=== PATIENT | male | born 1960 | race Caucasian/White ===

== ENCOUNTER 2025-06-05 10:32 | Inpatient (IN) ==
--- NOTE | 2025-06-04 08:31 | Anesthesiology Consultation ---
Date of Service June 04, 2025 Assessment & Plan (1) Encounter for pre-operative examination: Chart Review Chart Review: Acceptable Risk for Surgery (pending DOS EKG ) and Patient NOT seen in Pre Admission Testing - Check EKG stat DOS (not done preoperatively) -Infectious Disease screening: Per PAT nursing assessment on 06/04/25. No known infectious disease contacts in past 10 days or current infectious disease symptoms. No recent travel outside the country. Right Knee Open Incisional Debridement 06/07/22= Done under [place] with LMA #5. Atraumatic attempt x 1 Consults Requested none ASA ASA2 Proposed Anesthesia Anesthesia Type: General Risk / Benefits Reviewed With: PT / POA / Parent / Guardian, Accepts Plan and Informed Consent Obtained History Surgery Operation Date: 06/05/25 11:50 Proposed Procedures p Right Knee Incisional Debridement Suture Material, Intraligamentous Ganglion Cyst - Claude Fritz MD s Right Knee Debridement Patella Tunnel - Claude Fritz MD Height/Weight Height: 6 ft Weight: 90.718 kg Allergies Allergy/AdvReac Type Severity Reaction Status Date / Time cephalexin Allergy rash, Verified 06/05/25 10:51 itching Medications Home Medications Medication Instructions Recorded Confirmed Last Taken amlodipine 5 mg tablet 5 mg PO QPM 06/07/22 06/05/25 06/04/25 22:00 losartan 25 mg tablet 25 mg PO QPM 06/07/22 06/05/25 06/04/25 22:00 Active Medications Generic Name Dose Route Start Last Admin Trade Name Freq PRN Reason Stop Dose Admin Acetaminophen 1,000 mg 06/05/25 06:00 06/05/25 10:54 Acetaminophen 500 Mg Tab PO 06/05/25 18:00 1,000 mg PREOP YU Administration Celecoxib 200 mg 06/05/25 06:00 06/05/25 10:54 Celebrex 200 Mg Cap PO 06/05/25 18:00 200 mg PREOP YU Administration Dexamethasone Sodium Phosphate 10 mg 06/05/25 06:00 06/05/25 10:54 DexamethasonePf 10 Mg/Ml Vial IV 06/05/25 18:00 10 mg PREOP YU Administration Famotidine 20 mg 06/05/25 06:00 06/05/25 10:54 Famotidine 20 Mg Tab PO 06/05/25 18:00 20 mg PREOP YU Administration Gabapentin 600 mg 06/05/25 06:00 06/05/25 10:54 Gabapentin 600 Mg Dose PO 06/05/25 18:00 600 mg PREOP YU Administration Lactated Ringer's 1,000 mls @ 60 mls/hr 06/05/25 06:00 06/05/25 10:55 Lr IV 06/05/25 22:39 Not Given .[id number] YU Lactated Ringer's 1,000 mls @ 15 mls/hr 06/05/25 06:00 06/05/25 11:15 Lr IV 06/06/25 05:59 15 mls/hr .Q24H YU Administration Metoclopramide HCl 10 mg 06/05/25 06:00 06/05/25 10:54 Metoclopramide Hcl 10 Mg Tablet PO 06/05/25 18:00 10 mg PREOP YU Administration Past Medical History Medical History Hyperlipidemia Hypertension Incomplete right bundle branch block (RBBB) pt stated "he knows nothing about this" noted incidentally on 2021 EKG per [place] records Exercise / Class Metabolic Activity II 4-5 Yardwork/Stairs/Walk up hill Past Family History Family History Other No known health problems Past Surgical History Surgical History History of repair of ruptured quadriceps tendon ~2021, right Hx of knee surgery 2021, rt knee open incision suture material, suture debridement, with I&D prepatellar bursa Status post cardiac surgery as a child, repair "hole in heart" (Discussed history of "hole in heart" repair during childhood with Dr Castaneda- patient is otherwise healthy- no physical limitations and tolerated surgery well in 2022- no further follow up/work up needed) Past Anesthesia History No Hx of Anesthesia Complications and No Family Hx of Anesthesia Complications History of PONV No Hx of PONV and No Hx of Motion Sickness Social History Smoking Status: Never smoker Do You Dip or Chew Tobacco: No Hx Alcohol Use: Yes alcohol intake frequency: holidays/special occasions only Hx Substance Use: No substance use type: does not use Physical Exam Vital Signs Last Vital Signs Temp 36.5 C 06/05/25 10:49 Pulse 71 06/05/25 10:49 Resp 20 06/05/25 10:49 BP 160/81 H 06/05/25 10:49 Pulse Ox 96 06/05/25 10:49 O2 Del Method Room Air 06/05/25 10:49 ENMT Mouth: no dentition abnormality Thyromental Distance: > or= 3.5 Finger Breadths Mallampati Class: II Neck normal visual inspection Respiratory normal respiratory effort Auscultation: lungs clear to auscultation bilaterally Cardiovascular Rate/Rhythm: regular rate and regular rhythm Psychiatric Orientation: alert Lab Results Anesthesia Preop Results Results Anesthesia Widget: WBC 9.46 K/ul (4.8-10.8) 06/03/25 Hgb 13.8 g/dL (14.0-18.0) L 06/03/25 Hct 40.0 % (42.0-52.0) L 06/03/25 Plt 375 K/uL (130-400) 06/03/25 Na 138 mmol/L (136-145) 06/03/25 K 3.9 mmol/L (3.5-5.1) 06/03/25 Cl 103 mmol/L (98-107) 06/03/25 CO2 26 mmol/L (21-32) 06/03/25 BUN 24 mg/dl (6-23) H 06/03/25 Creat 0.84 mg/dl (0.6-1.4) 06/03/25 Glucose Level 136 mg/dl (70-99(Fasting)) H 06/03/25 PT 10.3 Seconds (9.0-12.0) 06/03/25 PTT 29 Seconds (21-31) 06/03/25 INR 1.0 (0.9-1.1) 06/03/25 Blood Type A Positive 06/03/25 Antibody Screen NEGATIVE 06/03/25 Testing Chest X-Ray Date: 06/03/25 Findings: + NAD
--- NOTE | 2025-06-04 17:29 | History & Physical Report ---
Date of Service June 04, 2025 Assessment & Plan (1) Abscess of knee, right: Plan: Right knee mass possible sinus tract possible abscess likely combination of foreign body adverse reaction to suture material and possible superinfection and possible continued infection extending into the patella cannot rule out osteomyelitis patella. Plan is to do open exploration and excision of the cystic mass and excise suture material and debridement and irrigate the bone and get deep cultures. Hold antibiotics. Consulted with infectious disease Dr. Bernice Palacios who recommended patient start on Zosyn IV antibiotics pending cultures. She is available for consultation via Zoom or phone contact in the postoperative period (2) History of repair of ruptured quadriceps tendon: History of Present Illness Chief Complaint: Tender mass developed quadriceps area above the joint Primary Care Provider: Kaitlin Riggs 64-year-old male who had a quadriceps tendon repair of a right knee ruptured quad tendon in 2021 and had complications postop with adverse reaction to FiberWire suture material which had to be removed at the inferior pole of the patella but cultures demonstrate he had Pseudomonas infection. Patient had IntraOp clindamycin and gentamicin and was treated afterward with ciprofloxacin and had recovery and eventually with physical therapy did satisfactorily with function which patient was satisfied with until 3 years later now developed soft tissue cystic mass/abscess superior aspect of his incision of his quad tendon repair site. Patient denies headaches, sweats, fevers, chills, double vision, blurred vision, cough, sore throat, chest pain, sob, wheezing, n/v/d/c, numbness, tingling, fatigue, urinary symptoms, mood disorders. ROS positive for snoring/sleep apnea, anemia, acid reflux. Allergies Allergy/AdvReac Type Severity Reaction Status Date / Time cephalexin Allergy rash, Verified 06/04/25 07:56 itching Home Medications Medication Instructions Recorded Confirmed Type amlodipine 5 mg tablet 5 mg PO QPM 06/07/22 06/04/25 History losartan 25 mg tablet 25 mg PO QPM 06/07/22 06/04/25 History Past Med/Surg History Problem List (Updated 06/04/25 @ 17:31 by Claude Fritz MD) History of repair of ruptured quadriceps tendon Abscess of knee, right Encounter for pre-operative examination Incomplete right bundle branch block Status post cardiac surgery as a child, repair "hole in heart" Postoperative wound infection Medical History Hyperlipidemia Hypertension Incomplete right bundle branch block (RBBB) pt stated "he knows nothing about this" noted incidentally on 2021 EKG per [place] Surgical History History of repair of ruptured quadriceps tendon ~2021, right Hx of knee surgery 2021, rt knee open incision suture material, suture debridement, with I&D prepatellar bursa Status post cardiac surgery as a child, repair "hole in heart" Family History Other No known health problems Social History Smoking Status: Never smoker Second Hand Exposure: No; Do You Dip or Chew Tobacco: No; Tobacco Cessation Education Requested by Patient: No Hx Alcohol Use: Yes Hx Substance Use: No Preferred Language: Wallisian Communication Ability: Effective Thoracic Medicine Physician Required: No Beliefs That Will Affect Care: None Current Living Situation: Spouse Other Information That Helps Us Care for You: No Feels Safe at Home: Yes Safety Concerns: Feels Safe At This Time Assistive Devices: Glasses Review of Systems All systems reviewed & are unremarkable except as noted in HPI & below Physical Exam Constitutional: WD/WN, vitals as above Respiratory: normal respiratory effort; no respiratory distress Cardiovascular: Rate/Rhythm: regular rate and regular rhythm Musculoskeletal: Skin at area of upper quadriceps repair incision has a reddened fluid-filled collection with indurated area around it that has drained and could be an abscess or cystic foreign body reaction. Indurated tissue about 4 cm around the central area of cystic fluctuance. Knee joint has no knee effusion. Patella has patella Baha and there is attenuation of the quadriceps tendon repair. Distal circulation sensorimotor exam intact. Skin: no rashes, warm and dry Neurologic: normal touch/pain/proprioception Psychiatric: A+Ox3, euthymic affect Results & Data Laboratory Results WBC 9, C-reactive protein 1.03, ESR 40. Diagnostic Findings Radiographs demonstrate some widening of the tunnels that were made for suture placement that originally were just small and the size of a drill bit now widened. MRI demonstrates cystic fluid filled mass that appears to have a sinus tract that extends to the medial trans patellar tunnel which still appears to have some suture material within it. The lateral tunnel has apparent suture material within it but no inflammation. This could be a sinus tract extending to the medial tunnel and cannot rule out patella osteomyelitis. Small knee effusion and degenerative changes of meniscus and some arthritis in the knee likely unrelated to current problem.
[~2025-06-05 10:32] MED LIST: General Order Problem(s) SCH
[2025-06-05] MEDS: CeleBREX 200 MG CAP PO SCH (10:54)
[2025-06-05] MEDS: dexAMETHasone**PF** 10 MG/ML VIAL IV SCH (10:54)
[2025-06-05] MEDS: GABAPENTIN 600 MG DOSE PO SCH (10:54)
[2025-06-05] MEDS: METOCLOPRAMIDE HCL 10 MG TABLET PO SCH (10:54)
[2025-06-05] MEDS: FAMOTIDINE 20 MG TAB PO SCH (10:54)
[2025-06-05] MEDS: ACETAMINOPHEN 500 MG TAB PO SCH (10:54)
[2025-06-05] MEDS: LR 60ML/HR IV SCH (10:55)
[2025-06-05] MEDS: LR 15ML/HR IV SCH (11:15)
[2025-06-05] MEDS ORDERED: ATROPINE SULFATE 0.1 MG/ML 10ML SYR IV PRN (12:12)
[2025-06-05] MEDS ORDERED: ONDANSETRON INJ 2 MG/ML 2 ML VIAL IV PRN ×2 (12:12→17:14)
[2025-06-05] MEDS ORDERED: PROMETHAZINE HCL 6.25 MG in SODIUM CHLORIDE 0.9% 50 ML IV PRN (12:12)
[2025-06-05] MEDS ORDERED: MIDAZOLAM HCL 1 MG/ML 2ML VIAL ONE (12:23)
--- NOTE | 2025-06-05 12:23 | History & Physical Bridge Note ---
Date of Service June 05, 2025 History & Physical Bridge Note I have examined the patient, reviewed the History & Physical and in the interval since the performance of the History & Physical I have noted the following changes of clinical significance: no changes noted
[2025-06-05] MEDS: TRANEXAMIC ACID 1,000 MG **IV Pre-op IV SCH (12:36)
[2025-06-05] MEDS ORDERED: GLYCOPYRROLATE 0.2 MG/ML VIAL ONE (13:11)
[2025-06-05] MEDS ORDERED: KETOROLAC 30 MG/ML VIAL ONE (14:28)
[2025-06-05] MEDS ORDERED: MoRPHine SULFATE 2 MG/ML CARP ONE (14:28)
[2025-06-05] MEDS ORDERED: ceFAZolin 330 MG/ML 1 GM VIAL ONE (14:28)
--- NOTE | 2025-06-05 15:26 | Operative Report ---
Post Operative Report Pre & Post Diagnosis Operation Date: 06/05/25 11:50 Pre-Op Diagnosis: Right Knee Abscess, Foreign Body Reaction Post-Op Diagnosis: Right Knee multiple suture abscesses , Foreign Body Reaction, bone tunnel dilation cannot rule out osteomyelitis. I identified the patient and participated in the time-out.: Yes Procedure Operation Date: 06/05/25 11:50 Actual Procedures p Right Knee Incision and drainage and excisional debridement Suture Material, multiple suture abscesses, quadriceps tendon tissue, debridement of skin and sinus tract.- Claude Fritz MD s Right Knee Debridement of bone patella Tunnel(Right) - Claude Fritz MD Surgeon Claude Fritz MD [employer] Installer None Estimated Blood Loss 5 Findings Consistent with Post-Op Diagnosis Specimens Multiple cultures and soft tissue and bone tunnel culture Drains 2 Hemovac Anesthesia Type General Regional Complications none Disposition Disposition: Recovery Room Indications 64-year-old male with what appears to be an abscess at the superior aspect of his incision that just started to drain 1 day preop. Patient had history of allergic reaction to suture material which was excised postop quad tendon repair 3 years ago. He responded to excision of the suture material below the patella level and placement on antibiotics for Pseudomonas infection. Patient's recurrence now is proximal Description of Procedure Patient was taken to the operating room and placed supine on the operating room table. He was placed under general anesthesia. A pneumatic tourniquet was placed by his right upper thigh. His right lower extremity was prepped and draped with ChloraPrep. Exam demonstrated there was abscess at the superior aspect of his incision above the level of the patella overlying the quadriceps tendon. This was 2-1/2 cm in diameter but he had induration 4 cm in diameter. The leg was elevated and the pneumatic tourniquet was raised to 325 mmHg. An elliptical incision was made excising the sinus tract and some of the abscess. There was suture material within the abscess. This was #5 FiberWire suture. There was purulent material consistent with adverse suture reaction with allergic foreign body reaction versus infection and foreign body reaction. Cultures were obtained deep. Specimen was sent with sinus tract. The incision was carried down the to the inferior pole of the patella longitudinally through his old scar. Subcutaneous flaps were tediously dissected with the scarred indurated subcutaneous tissue having to be reflected off the underlying fascia. There were multiple abscesses. The quadriceps tendon repair was intact but attenuated above the level of the patella. I had to make 4 separate longitudinal incisions through the quadriceps tendon to remove this sutures which were placed in a Krakw stitch. All sutures were removed. Along the medial patella where the tunnel showed possible infection and dilation this tunnel was identified after dissection down to the bone and we cultured that area. After all areas were cultured then we gave him Zosyn IV. This was based on previous Pseudomonas infection 3 years ago. All wounds were copiously irrigated with pulsatile lavage saline solution. The drill was taken through the medial tunnel and this was drilled out debriding the bone of the medial patella tunnel and further irrigation performed afterwards. A Versajet was used to debride all the incisional areas and all the abscess areas until completely clean and devoid of any necrotic tissue. Further irrigation with Irrisept was performed. Further irrigation with 3 more liters of pulsatile lavage saline solution was performed. 2 Hemovac drains were placed. These were placed subcutaneous. The split and the quadricep tendon were repaired with interrupted #1 PDS sutures. The subcutaneous tissues were closed interrupted 2-0 PDS sutures. Skin was closed with surgical brianda. Xeroform dressing was applied. Compressive sterile dressings were applied. Tourniquet was let down patient normal capillary fill back to extremity. Patient had an Yunier wrap placed from the foot to the thigh. Patient's leg was placed into a knee immobilizer. Patient Toller procedure well. I attest to the content of the Intraoperative Record and any orders documented therein. Any exceptions are noted below.
[2025-06-05] MEDS ORDERED: diphenhydrAMINE Capsule 25 MG CAP PO PRN (17:14)
[2025-06-05] MEDS ORDERED: ZOLPIDEM TARTRATE 5 MG TAB PO PRN (17:14)
[2025-06-05] MEDS ORDERED: MAGNESIUM HYDROXIDE SUSP 30 ML UDC PO PRN (17:14)
[2025-06-05] MEDS ORDERED: ALUMINUM/MAGNESIUM SUSP 30 ML UDC PO PRN (17:14)
[2025-06-05] MEDS ORDERED: METOCLOPRAMIDE HCL INJ 5 MG/ML 2 ML VIAL IV PRN (17:14)
--- NOTE | 2025-06-05 18:04 | Hospitalist Consultation ---
Date of Consultation June 05, 2025 Assessment & Plan (1) Hypertension: Plan Bhupinder Haas is a 64 Y O Male with PMH of Hypertension S/P Incision and Drainage for multiple suture abscess in right knee consulted for routine consultation for medical management. #HTN -Patient is on Amlodipine 5mg PO qPM and Losartan 25mg PO qPM at home. -BP has been in the range of 140-160/ 70-90 -Denies any current symptoms like headache, dizziness, blurry vision or chest pain currently -Continue home medication. #Anticoagulation -Patient has been started on Eliquis 2.5 mg BID Continue rest of care as per primary team Supervising Physician Co-Signing Physician Notes Patient seen and examined, chart reviewed, case discussed with Dr. Brooks and I agree with the assessment and plan as above except as otherwise noted Labs and images reviewed 64-year-old male who presents for knee incision and drainage, excision of suture material with multiple suture abscesses and concern for possible foreign body reaction s/p operative intervention 06/05/2025. We are consulted for postoperative management of medical comorbidities. He had a history of hypertension. Blood pressure slightly elevated but reasonable postoperative. Follow BMP, check renal function in the morning. He has been placed on Eliquis for DVT prophylaxis. Zosyn has been continued given prior cultures positive for Pseudomonas in 2021. Fortunately he has been afebrile, he has no leukocytosis, and has been nontoxic. Differential includes localized reaction, he reports he does have a history of significant reaction to foreign bodies including metal wire around surgery as a child. Will continue to follow his cultures. If his bone cultures are positive and indicative of osteo would need treatment for 6 weeks however it is unclear if this is truly infectious versus an adverse foreign body reaction. Trend CBC daily. Agree with above History of Present Illness Reason for Consultation: Medical maangement Attending Physician: Claude Fritz MD History of Present Illness 64-year-old male who had a quadriceps tendon repair of a right knee ruptured quad tendon in 2021 and had complications postop with adverse reaction to FiberWire suture material which had to be removed at the inferior pole of the patella but cultures demonstrate he had Pseudomonas infection. Patient had IntraOp clindamycin and gentamicin and was treated afterward with ciprofloxacin and had recovery and eventually with physical therapy did satisfactorily with function which patient was satisfied with until 3 years later now developed soft tissue cystic mass/abscess superior aspect of his incision of his quad tendon repair site. Patient denies headaches, sweats, fevers, chills, double vision, blurred vision, cough, sore throat, chest pain, sob, wheezing, n/v/d/c, numbness, tingling, fatigue, urinary symptoms, mood disorders. ROS positive for snoring/sleep apnea, anemia, acid reflux. Allergies Allergy/AdvReac Type Severity Reaction Status Date / Time cephalexin Allergy rash, Verified 06/05/25 10:51 itching Home Medications Medication Instructions Recorded Confirmed Type amlodipine 5 mg tablet 5 mg PO QPM 06/07/22 06/05/25 History losartan 25 mg tablet 25 mg PO QPM 06/07/22 06/05/25 History Patient History Medical History Hyperlipidemia Hypertension Incomplete right bundle branch block (RBBB) pt stated "he knows nothing about this" noted incidentally on 2021 EKG per [place] Surgical History History of repair of ruptured quadriceps tendon ~2021, right Hx of knee surgery 2021, rt knee open incision suture material, suture debridement, with I&D prepatellar bursa Status post cardiac surgery as a child, repair "hole in heart" Family History Other No known health problems Social History Smoking Status: Never smoker Second Hand Exposure: No; Do You Dip or Chew Tobacco: No; Tobacco Cessation Education Requested by Patient: No Hx Alcohol Use: Yes Hx Substance Use: No Preferred Language: Monegasque Communication Ability: Effective Principal Scientist Required: No Beliefs That Will Affect Care: None Current Living Situation: Spouse Other Information That Helps Us Care for You: No Feels Safe at Home: Yes Safety Concerns: Feels Safe At This Time Assistive Devices: Glasses Review of Systems Review of Systems: As per HPI Physical Exam Physical Exam: Constitutional: Well appearing, No acute distress, PILCCOD: Negative HEENT: Atraumatic, Normocephalic, No conjunctival injection CVS: S1 S2 no murmur, Regular Rhythm, no LE edema Respiratory: BL equal air entry with NVBS. No rhonchi, wheezes, or crackles. No increased work of breathing GI: Soft, Nondistended, Nontender, Normal Bowel sounds + MSK: No gross deformities noted Skin: Warm, Dry, No rashes Neuro: Alert, Oriented to TPP, No Focal deficit Psych: Mood and Affect congruent, Cooperative on exam Results & Data Results & Data Vital Signs (Past 12 Hours) Vital Signs Temp Pulse Pulse Resp BP Pulse Ox O2 Del Method 06/05/25 17:00 36.8 C 88 14 158/81 H 92 Room Air 06/05/25 16:40 88 16 148/85 H 96 Nasal Cannula 06/05/25 16:25 36.4 C L 86 16 153/80 H 97 Nasal Cannula 06/05/25 16:10 85 16 160/84 H 97 Nasal Cannula 06/05/25 16:00 83 16 148/82 H 97 Nasal Cannula 06/05/25 15:50 82 16 156/79 H 99 Room Air 06/05/25 15:40 74 16 151/76 H 97 Room Air 06/05/25 15:30 76 16 154/76 H 96 Room Air 06/05/25 15:20 36.5 C 73 16 157/74 H 96 Room Air 06/05/25 10:49 36.5 C 71 20 160/81 H 96 Room Air O2 Flow Rate 06/05/25 17:00 06/05/25 16:40 2 06/05/25 16:25 2 06/05/25 16:10 2 06/05/25 16:00 2 06/05/25 15:50 06/05/25 15:40 06/05/25 15:30 06/05/25 15:20 06/05/25 10:49 Resident Activity Tracking Resident Involvement: Resident Care Provided Care Provided: Adult Hospital Medicine
[2025-06-05] MEDS: PIPERACILLIN IV SCH (18:18)
[2025-06-05] MEDS: TAZOBACTAM IV SCH (18:18)
[2025-06-05] MEDS: PIPERACILLIN/TAZOBACTAM 4.5 GM/100 ML BAG IV ONE (18:33)
[2025-06-05] MEDS: KETOROLAC 30 MG/ML VIAL IV PRN (19:26)
[2025-06-05] MEDS: DOCUSATE SODIUM 100 MG CAP PO SCH (20:43)
[2025-06-05] MEDS: LOSARTAN POTASSIUM 25 MG TAB PO SCH (20:43)
[2025-06-05] MEDS ORDERED: APIXABAN 2.5 MG TAB PO SCH (21:00)
--- NOTE | 2025-06-05 21:53 | Electrocardiogram Report ---
Test Reason : Blood Pressure : */* mmHG Vent. Rate : 68 BPM Atrial Rate : 68 BPM P-R Int : 172 ms QRS Dur : 112 ms QT Int : 426 ms P-R-T Axes : 72 -6 66 degrees QTcB Int : 452 ms Normal sinus rhythm Incomplete right bundle branch block Borderline ECG When compared with ECG of 07-Jun-2022 15:18, No significant change was found Confirmed by Tico Gu ([id number]) on 06/05/2025 9:52:33 PM Referred By: Claude Fritz Confirmed By: Tico Gu
[2025-06-06] MEDS: PIPERACILLIN/TAZOBACTAM 4.5 GM/100 ML BAG IV SCH (00:34)
--- NOTE | 2025-06-06 07:42 | Hospitalist Consultation ---
Date of Consultation June 06, 2025 Assessment & Plan (1) Hypertension: Plan Bhupinder Haas is a 64yo M with PMH notable for HTN. Admitted for for multiple suture abscess in right knee, S/P incision and drainage on 06/05. Hospitalist service consulted for postoperative medical management. Recovering well overall #HTN -BP has been in the range of 140-160/70-90, reasonable post-op -Continue Amlodipine 5mg PO qPM and Losartan 25mg PO qPM -Denies any current symptoms like headache, dizziness, blurry vision or chest pain currently #Anticoagulation - Patient has been started on Eliquis 2.5 mg BID Continue rest of care as per primary team History of Present Illness Reason for Consultation: post-op medical management Attending Physician: Claude Fritz MD History of Present Illness Reports knee immobilizer is very uncomfortable, but per surg team needed for ambulation & can loosen in bed for comfort. Otherwise doing well, no f/c, CP, SOB, n/v/d, weakness, leg pain except appropriate discomfort around R knee. Allergies Allergy/AdvReac Type Severity Reaction Status Date / Time cephalexin Allergy rash, Verified 06/05/25 10:51 itching Home Medications Medication Instructions Recorded Confirmed Type amlodipine 5 mg tablet 5 mg PO QPM 06/07/22 06/05/25 History losartan 25 mg tablet 25 mg PO QPM 06/07/22 06/05/25 History Patient History Medical History Hyperlipidemia Hypertension Incomplete right bundle branch block (RBBB) pt stated "he knows nothing about this" noted incidentally on 2021 EKG per [place] records Surgical History History of repair of ruptured quadriceps tendon ~2021, right Hx of knee surgery 2021, rt knee open incision suture material, suture debridement, with I&D prepatellar bursa Status post cardiac surgery as a child, repair "hole in heart" Family History Other No known health problems Social History Smoking Status: Never smoker Second Hand Exposure: No; Do You Dip or Chew Tobacco: No; Tobacco Cessation Education Requested by Patient: No Hx Alcohol Use: Yes Hx Substance Use: No Preferred Language: Surinamese Communication Ability: Effective Grey Washer Required: No Beliefs That Will Affect Care: None Current Living Situation: Spouse Other Information That Helps Us Care for You: No Feels Safe at Home: Yes Safety Concerns: Feels Safe At This Time Assistive Devices: Walker Review of Systems Review of Systems: As per HPI Physical Exam Physical Exam: Gen: NAD, WD/WN CV: RRR, no m/r/g, S1/S2 normal, no LE edema, distal pulses intact Resp: CTAB, symmetrical chest rise, breathing non-labored Abd: Soft, NT/ND, +BS MSK: RLE largely covered by immobilizer. Normal str and ROM at ankle. Normal str, ROM, and visual inspection of LLE Skin: Warm, dry, well-perfused, no rashes appreciated Neuro: AOx3, CN II-XII grossly intact, no focal deficits Psych: Full, euthymic affect. Speech pace normal. Thoughts linear and goal- directed. Results & Data Results & Data Vital Signs (Past 12 Hours) Vital Signs Temp Pulse Pulse Resp BP Pulse Ox O2 Del Method 06/06/25 07:08 36.8 C 74 16 158/74 H 93 Room Air 06/06/25 05:24 36.9 C 73 16 152/72 H 94 Room Air 06/06/25 00:45 36.7 C 80 16 130/66 94 Room Air 06/05/25 20:42 78 18 138/69 94 Room Air Resident Activity Tracking Resident Involvement: Resident Care Provided Care Provided: Adult Hospital Medicine
[2025-06-06] MEDS: APIXABAN 2.5 MG TAB PO SCH (07:52)
--- NOTE | 2025-06-06 07:57 | Orthopedic Progress Note ---
Date of Service June 06, 2025 Assessment & Plan (1) Postoperative wound infection: Plan: POD #1 s/p Right Knee Incision and drainage and excisional debridement Suture Material, multiple suture abscesses, quadriceps tendon tissue, debridement of skin and sinus tract, Debridement of bone patella Tunnel knee immobilizer for ambulation, can loosen in bed for comfort hemovac drain until minimal drainage, possibly d/c tomorrow am DVT with Radhames ID Consulted, awaiting intra op cultures, currently on IV Zosyn, prior cultures positive for Pseudomonas in 2021. anticipate 6 weeks of Abx but will await ID recommendations. Admission and Anticipated Discharge Date Admission Date: June 05, 2025 Subjective POD #1 s/p Right Knee Incision and drainage and excisional debridement Suture Material, multiple suture abscesses, quadriceps tendon tissue, debridement of skin and sinus tract, Debridement of bone patella Tunnel Review of Systems Constitutional: no fever and no chills Respiratory: no cough and no dyspnea Cardiovascular: no chest pain, no dyspnea and no orthopnea Gastrointestinal: no abdominal pain, no nausea and no vomiting Physical Exam Physical Exam: Vital Signs Temp 36.8 C 06/06/25 07:08 Pulse 74 06/06/25 07:08 Resp 16 06/06/25 07:08 BP 158/74 H 06/06/25 07:08 Pulse Ox 93 06/06/25 07:08 O2 Del Method Room Air 06/06/25 07:08 O2 Flow Rate 2 06/05/25 16:40 Intake & Output 06/05/25 06/06/25 06/06/25 18:59 06:59 18:59 Intake Total 1700 / 1900 200 / 1900 Output Total 5 / 5 Balance 1695 / 1895 200 / 1895 Weight 89.9 kg Intake: IV 200 / 400 200 / 400 Lactated Ringe r's 1,000 ml @ 15 0 / 0 mls/hr IV .Q24 H YU Rx#: [id number] Piperacillin/T azobactam 4.5 gm 200 / 200 In 100 ml @ 25 mls/hr IV Q8H YU Rx#:[id number] Tranexamic Aci d / 0.7% NaCl 1, 200 / 200 000 mg In 100 ml @ 600 mls/hr IV TODAY@0600 YU Rx#:[id number] IV Perioperative 1500 / 1500 Output: Estimated Blood Loss 5 / 5 Drain Output 0 / 0 Right Knee Hem ovac 0 / 0 Other: Other Intake Aye rce sips # Unmeasured Voi ds 1 Weight Measureme nt Method Standing Scale Musculoskeletal: Right Knee: resting in immobilizer, dressing clean and dry. hemovac in place. NVDI, calf SNT, DP +2 Results & Data Vital Signs (Past 12 Hours) Vital Signs Temp Pulse Pulse Resp BP Pulse Ox O2 Del Method 06/06/25 07:08 36.8 C 74 16 158/74 H 93 Room Air 06/06/25 05:24 36.9 C 73 16 152/72 H 94 Room Air 06/06/25 00:45 36.7 C 80 16 130/66 94 Room Air 06/05/25 20:42 78 18 138/69 94 Room Air Laboratory Results Microbiology 06/05/25 14:04 Gram Stain - Final Knee,Right Aerobic and Anaerobic Culture - Pending 06/05/25 14:00 Gram Stain - Final Bone Aerobic and Anaerobic Culture - Pending 06/05/25 13:31 Gram Stain - Final Knee Aerobic and Anaerobic Culture - Pending 06/05/25 13:16 Gram Stain - Final Knee Aerobic and Anaerobic Culture - Pending 06/05/25 13:15 Gram Stain - Final Leg,Right Aerobic and Anaerobic Culture - Pending 06/05/25 13:14 Gram Stain - Final Knee,Right Aerobic and Anaerobic Culture - Pending
[2025-06-06 08:13] LABS: Hematocrit (blood only) 35.7 % (42.0-52.0); Hemoglobin 12.3 g/dL (14.0-18.0); Immature Granulocytes # (auto) 0.10 K/uL (0.01-0.20); Immature Granulocytes % (auto) 0.6 %; Mean Corpuscular Hemoglobin 28.6 pg (25.0-34.0); Mean Corpuscular Volume 83.0 fL (80.0-100.0); Platelet Count 310 K/uL (130-400); RDW Standard Deviation 40.3 fL (36.4-46.3); Red Blood Count 4.30 M/uL (4.70-6.10); White Blood Count 16.91 K/ul (4.8-10.8)
--- NOTE | 2025-06-06 15:08 | Hospitalist Progress Note ---
Date of Service June 06, 2025 Assessment & Plan (1) Hypertension: Plan Bhupinder Haas is a 64yo M with PMH notable for HTN. Admitted for for R knee abscess, S/P incision and drainage on 06/05. Hospitalist service consulted for postoperative medical management. Recovering well overall. #HTN -BP has been in the range of 130s-150s/70s, reasonable post-op -Continue Amlodipine 5mg PO qPM and Losartan 25mg PO qPM -Denies any current symptoms like headache, dizziness, blurry vision or chest pain currently #Anticoagulation - Continue Eliquis 2.5 mg BID #R knee abscess - POD#1 s/p Right knee I&D, excisional debridement of suture material, multiple suture abscesses, quadriceps tendon tissue, debridement of skin and sinus tract, and debridement of bone patella Tunnel (Right) - Continue rest of care as per primary team Admission and Anticipated Discharge Date Admission Date: June 05, 2025 Supervising Physician Co-Signing Physician Notes Patient seen and examined, chart reviewed, case discussed with Dr. Dominguez and I agree with the assessment and plan as above except as otherwise noted Labs and images reviewed At bedside. Nontoxic, no distress no fevers or chills. Really not labored. Drain is in place draining a scant amount of serosanguineous material. Had not yet heard about his cultures, discussed positive bone/knee cultures were consistent with suspected infection and confirms that he will need several weeks of antibiotics. Further decisions to be guided by speciation's once available.Leukocytosis of 16. Surgical cultures including bone culture are positive for Pseudomonas. He will require at least 6 weeks of treatment with antibiotics continue Zosyn for now. ID consultation is pending. Prior Pseudomonas cultures were sensitive to fluoroquinolones, his QT is not prolonged. Hemodynamically stable this morning. Nontoxic-appearing. Blood pressure adequately controlled, continue current treatment. Pain control adequate. DVT prophylaxis with Eliquis continued. No acute concerns at bedside. Subjective Reports knee immobilizer is very uncomfortable, but per surg team needed for ambulation & can loosen in bed for comfort. Otherwise doing well, no f/c, CP, SOB, n/v/d, weakness, leg pain except appropriate discomfort around R knee. Review of Systems Review of Systems: As per HPI Physical Exam Physical Exam: Gen: NAD, WD/WN CV: RRR, no m/r/g, S1/S2 normal, no LE edema, distal pulses intact Resp: CTAB, symmetrical chest rise, breathing non-labored Abd: Soft, NT/ND, +BS MSK: RLE largely covered by immobilizer. Normal str and ROM at ankle. Normal str, ROM, and visual inspection of LLE Skin: Warm, dry, well-perfused, no rashes appreciated Neuro: AOx3, CN II-XII grossly intact, no focal deficits Psych: Full, euthymic affect. Speech pace normal. Thoughts linear and goal- directed. Results & Data Results & Data Vital Signs (Past 12 Hours) Vital Signs Temp Pulse Pulse Resp BP Pulse Ox O2 Del Method 06/06/25 11:59 36.7 C 81 16 137/73 93 Room Air 06/06/25 07:08 36.8 C 74 16 158/74 H 93 Room Air 06/06/25 05:24 36.9 C 73 16 152/72 H 94 Room Air Resident Activity Tracking Resident Involvement: Resident Care Provided Care Provided: Adult Hospital Medicine
--- NOTE | 2025-06-07 06:46 | Hospitalist Progress Note ---
Date of Service June 07, 2025 Assessment & Plan (1) Hypertension: Plan Bhupinder Haas is a 64yo M with PMH notable for HTN. Admitted for for R knee abscess, S/P incision and drainage on 06/05. Hospitalist service consulted for postoperative medical management. Recovering well overall. #HTN -BP has been in the range of 130s-150s/70s, reasonable post-op -Continue Amlodipine 5mg PO qPM and Losartan 25mg PO qPM -Denies any current symptoms like headache, dizziness, blurry vision or chest pain currently #Anticoagulation - Continue Eliquis 2.5 mg BID #R knee abscess - POD#2 s/p Right knee I&D, excisional debridement of suture material, multiple suture abscesses, quadriceps tendon tissue, debridement of skin and sinus tract, and debridement of bone patella Tunnel (Right) - Cultures growing Pseudomonas, sensitive to all except meropenem. Will discuss with ID whether po Cipro would be safe given h/o tendon rupture, or IV abx required - Continue rest of care as per primary team Admission and Anticipated Discharge Date Admission Date: June 05, 2025 Supervising Physician Co-Signing Physician Notes Patient seen and examined, chart reviewed, case discussed with Dami Dominguez MD and I agree with the assessment and plan as above except as otherwise noted above. At the bedside. Doing well. Nontoxic. No fevers or chills. Leukocytosis is downtrending. Wound culture/bone culture positive for Pseudomonas. Cipro is not available option on sensitivities and received this 2-3 years ago; however not recommended given his history of tendon rupture and need for prolonged course. Did discuss with PA. There is a possibility for retained suture material, given this IV antibiotics are also reasonable. Discussed with ID. Agree with IV antibiotic treatment. Cultures are meropenem resistant. He is listed as having a cephalexin allergy, but notes that he had a single reaction which was some itching but no hives or respiratory involvement. He did receive cefazolin 06/05/2025 without reaction; reports he tolerated this without issue. Cefepime is significantly dissimilar structurally, he has also tolerated piperacillin, and low suspicion for true have allergy given his tolerance to cefazolin recently. Anticipate transition to cefepime for 6-week course of therapy. Will need weekly CBC/BMP. Will be seen by virtual ID 11/24 to review final recommendations Subjective Doing very well, no f/c, CP, SOB, n/v/d, weakness. Immobilizer has been loosened and is more comfortable. Pt has been oob w/o issues. No leg pain except appropriate discomfort around R knee. Review of Systems Review of Systems: As per HPI Physical Exam Physical Exam: Gen: NAD, WD/WN CV: RRR, no m/r/g, S1/S2 normal, no LE edema, distal pulses intact Resp: CTAB, symmetrical chest rise, breathing non-labored Abd: Soft, NT/ND, +BS MSK: RLE covered by immobilizer. Normal str and ROM at hip and ankle. Skin: Warm, dry, well-perfused, no rashes appreciated Neuro: AOx3, CN II-XII grossly intact, no focal deficits Psych: Full, euthymic affect. Speech pace normal. Thoughts linear and goal- directed. Results & Data Results & Data Vital Signs (Past 12 Hours) Vital Signs Temp Pulse Resp BP Pulse Ox O2 Del Method 06/06/25 20:08 36.6 C 72 17 165/82 H 94 Room Air Resident Activity Tracking Resident Involvement: Resident Care Provided Care Provided: Adult Hospital Medicine
[2025-06-07 07:20] LABS: Hematocrit (blood only) 39.1 % (42.0-52.0); Hemoglobin 12.9 g/dL (14.0-18.0); Mean Corpuscular Hemoglobin 28.0 pg (25.0-34.0); Mean Corpuscular Volume 84.8 fL (80.0-100.0); Platelet Count 330 K/uL (130-400); RDW Standard Deviation 42.2 fL (36.4-46.3); Red Blood Count 4.61 M/uL (4.70-6.10); White Blood Count 12.06 K/ul (4.8-10.8)
[2025-06-07 07:34] LABS: Anion Gap 7.0 (3-11); Blood Urea Nitrogen 19.0 mg/dl (6-23); Calcium 8.9 mg/dl (8.6-10.3); Carbon Dioxide 27.0 mmol/L (21-32); Chloride 105.0 mmol/L (98-107); Creatinine Clr Calc Pharmacy 83.0 ml/min; Glucose 120.0 mg/dl (70-99(Fasting)); Potassium 4.1 mmol/L (3.5-5.1); Sodium 139.0 mmol/L (136-145)
--- NOTE | 2025-06-07 07:37 | Orthopedic Progress Note ---
Date of Service June 07, 2025 Assessment & Plan (1) Postoperative wound infection: Plan: POD #2 s/p Right Knee Incision and drainage and excisional debridement Suture Material, multiple suture abscesses, quadriceps tendon tissue, debridement of skin and sinus tract, Debridement of bone patella Tunnel knee immobilizer for ambulation, can loosen in bed for comfort; PT: can do quad set, SLR, gentle heel slides, no ROM >90. d/c hemovac today, drain output 0. DVT with Eliquis ID Consulted, intraop cultures showing Pseudomonas aeruginosa. currently on IV Zosyn, prior cultures positive for Pseudomonas in 2021. anticipate 6 weeks of Abx but will await ID recommendations. Admission and Anticipated Discharge Date Admission Date: June 05, 2025 Subjective POD #2 s/p Right Knee Incision and drainage and excisional debridement Suture Material, multiple suture abscesses, quadriceps tendon tissue, debridement of skin and sinus tract, Debridement of bone patella Tunnel Review of Systems Constitutional: no fever and no chills Respiratory: no cough and no dyspnea Cardiovascular: no chest pain, no dyspnea and no orthopnea Gastrointestinal: no abdominal pain, no nausea and no vomiting Physical Exam Physical Exam: Vital Signs Temp 36.6 C 06/06/25 20:08 Pulse 72 06/06/25 20:08 Resp 17 06/06/25 20:08 BP 165/82 H 06/06/25 20:08 Pulse Ox 94 06/06/25 20:08 O2 Del Method Room Air 06/06/25 20:08 O2 Flow Rate 2 06/05/25 16:40 Intake & Output 06/06/25 06/07/25 06/07/25 18:59 06:59 18:59 Intake Total 200 / 300 100 / 300 Output Total 0 / 1 Balance 200 / 299 99 / 299 Intake: IV 200 / 300 100 / 300 Piperacillin/T azobactam 4.5 gm 200 / 300 100 / 300 In 100 ml @ 25 mls/hr IV Q8H YU Rx#:[id number] Output: Drain Output 0 / 0 Right Knee Hem ovac 0 / 0 # Bowel Movement s Other: # Unmeasured Voi ds 1 1 Musculoskeletal: Right Knee: resting in immobilizer, dressing clean and dry. hemovac in place. NVDI, calf SNT, DP +2 Results & Data Vital Signs (Past 12 Hours) Vital Signs Temp Pulse Resp BP Pulse Ox O2 Del Method 06/06/25 20:08 36.6 C 72 17 165/82 H 94 Room Air Laboratory Results Laboratory Results WBC 12.06 K/ul (4.8-10.8) H 06/07/25 06:49 RBC 4.61 M/uL (4.70-6.10) L 06/07/25 06:49 Hgb 12.9 g/dL (14.0-18.0) L 06/07/25 06:49 Hct 39.1 % (42.0-52.0) L 06/07/25 06:49 MCV 84.8 fL (80.0-100.0) 06/07/25 06:49 MCH 28.0 pg (25.0-34.0) 06/07/25 06:49 MCHC 33.0 g/dL (32.0-36.0) 06/07/25 06:49 RDW Std Deviation 42.2 fL (36.4-46.3) 06/07/25 06:49 RDW Coeff of Lizabeth 13.6 % (11.5-14.5) 06/07/25 06:49 Plt Count 330 K/uL (130-400) 06/07/25 06:49 MPV 9.6 fL (9.4-12.4) 06/07/25 06:49 Immature Gran % (Auto) 0.6 % 06/06/25 07:53 Neut % (Auto) 87.5 % 06/06/25 07:53 Lymph % (Auto) 6.7 % 06/06/25 07:53 Fountain % (Auto) 5.0 % 06/06/25 07:53 Eos % (Auto) 0.0 % 06/06/25 07:53 Baso % (Auto) 0.2 % 06/06/25 07:53 Neut # (Auto) 14.81 K/uL (1.40-6.50) H 06/06/25 07:53 Lymph # (Auto) 1.13 K/uL (1.20-3.40) L 06/06/25 07:53 Fountain # (Auto) 0.84 K/uL (0.11-0.59) H 06/06/25 07:53 Eos # (Auto) 0.00 K/uL (0.00-0.50) 06/06/25 07:53 Baso # (Auto) 0.03 K/uL (0.00-0.20) 06/06/25 07:53 Immature Gran # (Auto) 0.10 K/uL (0.01-0.20) 06/06/25 07:53 Sodium 139 mmol/L (136-145) 06/07/25 06:49 Potassium 4.1 mmol/L (3.5-5.1) 06/07/25 06:49 Chloride 105 mmol/L (98-107) 06/07/25 06:49 Carbon Dioxide 27 mmol/L (21-32) 06/07/25 06:49 Anion Gap 7 (3-11) 06/07/25 06:49 BUN 19 mg/dl (6-23) 06/07/25 06:49 Creatinine 1.00 mg/dl (0.6-1.4) 06/07/25 06:49 Est Cr Clr Drug Dosing 83.0 ml/min 06/07/25 06:49 eGFR 84.57 06/07/25 06:49 BUN/Creatinine Ratio 19.0 (10-20) 06/07/25 06:49 Glucose 120 mg/dl (70-99(Fasting)) H 06/07/25 06:49 Calcium 8.9 mg/dl (8.6-10.3) 06/07/25 06:49 Microbiology 06/05/25 13:31 Knee Gram Stain - Final 06/05/25 13:31 Knee Aerobic and Anaerobic Culture - Preliminary Pseudomonas aeruginosa 06/05/25 14:00 Bone Gram Stain - Final 06/05/25 14:00 Bone Aerobic and Anaerobic Culture - Preliminary Pseudomonas aeruginosa 06/05/25 13:16 Knee Gram Stain - Final 06/05/25 13:16 Knee Aerobic and Anaerobic Culture - Preliminary Pseudomonas aeruginosa 06/05/25 14:04 Knee,Right Gram Stain - Final 06/05/25 14:04 Knee,Right Aerobic and Anaerobic Culture - Preliminary No growth to date. 06/05/25 13:15 Leg,Right Gram Stain - Final 06/05/25 13:15 Leg,Right Aerobic and Anaerobic Culture - Preliminary No growth to date. 06/05/25 13:14 Knee,Right Gram Stain - Final 06/05/25 13:14 Knee,Right Aerobic and Anaerobic Culture - Preliminary No growth to date.
[2025-06-08 08:05] LABS: Hematocrit (blood only) 38.8 % (42.0-52.0); Hemoglobin 13.0 g/dL (14.0-18.0); Mean Corpuscular Hemoglobin 28.4 pg (25.0-34.0); Mean Corpuscular Volume 84.9 fL (80.0-100.0); Platelet Count 287 K/uL (130-400); RDW Standard Deviation 42.2 fL (36.4-46.3); Red Blood Count 4.57 M/uL (4.70-6.10); White Blood Count 9.25 K/ul (4.8-10.8)
[2025-06-08 08:26] LABS: Anion Gap 6.0 (3-11); Blood Urea Nitrogen 15.0 mg/dl (6-23); Calcium 8.8 mg/dl (8.6-10.3); Carbon Dioxide 29.0 mmol/L (21-32); Chloride 104.0 mmol/L (98-107); Creatinine Clr Calc Pharmacy 85.6 ml/min; Glucose 118.0 mg/dl (70-99(Fasting)); Potassium 3.9 mmol/L (3.5-5.1); Sodium 139.0 mmol/L (136-145)
--- NOTE | 2025-06-08 10:01 | Infectious Disease Consult ---
Date of Consultation June 08, 2025 Assessment & Plan (1) History of repair of ruptured quadriceps tendon: (2) Abscess of knee, right: Plan This is a 64-year-old man with a past medical history of hypertension, right quadricep tendon rupture status post repair in 05/2022, complicated by nonhealing wound with Pseudomonas aeruginosa infection and adverse reaction to FiberWire suture material and inflammation in prepatellar bursa. He underwent right knee open excision of suture material and excision of "proud flesh" with debridement of subcutaneous tissue, skin, prepatellar bursa with irrigation and debridement and wound closure on 06/07/2022. Operative culture grew Pseudomonas aeruginosa (pansensitive). He reports he was treated with ciprofloxacin. Postprocedure he did well with physical therapy. He eventually had closure of the wound and was able to walk and bike with no issues. He then developed increased swelling of the knee and abscess at the superior aspect of his incision of his quadricep tendon repair. He presents to the [facility] ED on 06/04/2025 for incision and drainage, excision of suture material with multiple suture abscesses. Prior to admission, outpatient ID (Dr. Palacios) was consulted by orthopedics and recommended the patient be started on Zosyn post OR. He did not received antibiotics prior to OR. Per my discussion with the patient, he confirms that in 05/2022, he had delay in right knee incision closure post tendon repair for several weeks. A wound swab of drainage grew Pseudomonas aeruginosa for which he was treated with ciprofloxacin. He went to the OR on 06/07/22 as per above, was treated with additional cipro and the wound eventually healed. He did well for for about 3 years About 2 months agom, he noticed intermittent knee swelling that resolved. 1 month ago knee swelling recurred and persisted. He then noted discoloration at the prior incision site and eventual dehiscence and wound drainage. Per report he underwent outpatient MRI (I do not have access to the result). On 06/05/2025, he underwent right knee incision and drainage and excisional debridement of suture material, multiple suture abscesses, quadricep tendon tissue, debridement of skin and sinus tract as well as right knee debridement of bone patella tunnel. All intraoperative cultures grew Pseudomonas aeruginosa (resistant to meropenem) On admission and throughout admission he has been afebrile and hemodynamically stable. WBC the day prior to admission on 06/03 was 9.46. Post OR on 06/06 WBC 16.91. Leukocytosis has resolved. He is currently on Zosyn. He denies fever, chills, sweats, nausea, vomiting, prior trauma to the knee. Pathology is pending. ID consulted for Right [place] knee infection. Microbiology: 06/05/2025 right knee suture abscess culture: Rare Pseudomonas aeruginosa(resistant to meropenem) 06/05/2025 right knee sinus tract culture #1: Rare Pseudomonas aeruginosa(resistant to meropenem) 06/05/2025 right knee sinus tract culture # 2: NGTD 06/05/2025 right quadricep tendon suture, vastus lateralis culture: Few Pseudomonas aeruginosa (resistant to meropenem) 06/05/2025 right knee bone tunnel culture: Rare Pseudomonas aeruginosa(resistant to meropenem) 06/05/2025 right patellar bone culture: Rare Pseudomonas aeruginosa(resistant to meropenem) Prior microbiology 06/07/2022 right knee abscess culture: Few Pseudomonas aeruginosa (pansensitive 05/26/2022 right knee abscess wound culture: Few Pseudomonas aeruginosa (pansensitive) Antibiotics Zosyn 06/05current # Recurrent Right knee Pseudomonas Aeruginosa infection. # Right knee suture abscesses, foreign body reaction, bone tunnel dilatat ion/sinus tract and osteomyelitis #Status post right knee I&D ,excisional debridement of suture material, multiple suture abscesses, quadricep tendon tissue, debridement of skin and sinus tract, and bone patella tunnel, 06/05/2025, cx Pseudomonas aeruginosa (resistant to meropenem) # History of repair of quadricep tendon repair 06/07/2022, cx Pseudomonas aeruginosa (pansensitive) Discussion: He presents with recurrent right [place] knee infection with abscess, sinus tract and osteomyelitis. He is sp OR. Bone cultures are positive for meropenem resistant pseudomonas aeruginosa. Positive bone culture confirms osteomyelitis. Pathology is pending. He has no knee hardware. He remains afebrile and hemodynamically stable. Would stay away from fluoroquinolones (Cipro, levofloxacin as the patient has a history of tendon rupture). Since organism is a Carbapenem R Pseudomonas, will place in contact isolation. Recommendations: -Discontinued Zosyn -Started Cefepime 2 g Iv q8h ( will avoid Cipro as given h/o tendon rupture) -Can Place picc line -Follow up pathology - since bone involved ( per cx ) plan for 6 weeks from OR. -Weekly CBC with diff, cmp on IV abx. Will need ID follow up on abx. Will d/w team if pt with follow with ID connect or Dr Palacios ( local ID) -Contact isolation for Carbapenem R Pseudomonas Discussed plan with patient. Thank you for this consult. ID will continue to follow. Sidney Fernandes MD, MPH Infectious Disease [facility], [facility] Call [phone] with questions Consultation Information Consultation was provided via telemedicine using two-way real-time interactive telecommunication between the patient and the telemedicine provider. For the duration of the visit, the provider was performing the assessment from a different facility than the patient. This includesuse of bluetooth stethoscope forauscultationperformed by the telepresenter that the telemedicine provider can hear if described in the physical exam. Threader Operator contact information: Please call [facility] Call Center [phone]. (Phone Number For Physician Use Only) After establishing a telemedicine visit, patient was: Patient was verified with two unique identifiers and Gave permission to continue telehealth session Time Spent with Patient: Initial => 75 min History of Present Illness Reason for Consultation: Recurrent R [place] Knee septic joint infection with Psuedomonas. Requesting Physician: Claude Fritz MD Attending Physician: Claude Fritz MD History of Present Illness This is a 64-year-old man with a past medical history of hypertension, right quadricep tendon rupture status post repair in 05/2022, complicated by nonhealing wound with Pseudomonas aeruginosa infection and adverse reaction to FiberWire suture material and inflammation in prepatellar bursa. He underwent right knee open excision of suture material and excision of "proud flesh" with debridement of subcutaneous tissue, skin, prepatellar bursa with irrigation and debridement and wound closure on 06/07/2022. Operative culture grew Pseudomonas aeruginosa (pansensitive). He reports he was treated with ciprofloxacin. Postprocedure he did well with physical therapy. He eventually had closure of the wound and was able to walk and bike with no issues. He then developed increased swelling of the knee and abscess at the superior aspect of his incision of his quadricep tendon repair. He presents to the [facility] ED on 06/04/2025 for incision and drainage, excision of suture material with multiple suture abscesses. Prior to admission, outpatient ID (Dr. Palacios) was consulted by orthopedics and recommended the patient be started on Zosyn post OR. He did not received antibiotics prior to OR. Per my discussion with the patient, he confirms that in 05/2022, he had delay in right knee incision closure post tendon repair for several weeks. A wound swab of drainage grew Pseudomonas aeruginosa for which he was treated with ciprofloxacin. He went to the OR on 06/07/22 as per above, was treated with additional cipro and the wound eventually healed. He did well for for about 3 years About 2 months agom, he noticed intermittent knee swelling that resolved . 1 month ago knee swelling recurred and persisted. He then noted discoloration at the prior incision site and eventual dehiscence and wound drainage. Per report he underwent outpatient MRI (I do not have access to the result). On 06/05/2025, he underwent right knee incision and drainage and excisional debridement of suture material, multiple suture abscesses, quadricep tendon tissue, debridement of skin and sinus tract as well as right knee debridement of bone patella tunnel. All intraoperative cultures grew Pseudomonas aeruginosa (resistant to meropenem) On admission and throughout admission he has been afebrile and hemodynamically stable. WBC the day prior to admission on 06/03 was 9.46. Post OR on 06/06 WBC 16.91. Leukocytosis has resolved. He is currently on Zosyn. He denies fever, chills, sweats, nausea, vomiting, prior trauma to the knee. Pathology is pending. ID consulted for Right [place] knee infection. Allergies Allergy/AdvReac Type Severity Reaction Status Date / Time cephalexin Allergy rash, Verified 06/05/25 10:51 itching Home Medications Medication Instructions Recorded Confirmed Type amlodipine 5 mg tablet 5 mg PO QPM 06/07/22 06/05/25 History losartan 25 mg tablet 25 mg PO QPM 06/07/22 06/05/25 History Patient History Medical History Hyperlipidemia Hypertension Incomplete right bundle branch block (RBBB) pt stated "he knows nothing about this" noted incidentally on 2021 EKG per [place] records Surgical History History of repair of ruptured quadriceps tendon ~2021, right Hx of knee surgery 2021, rt knee open incision suture material, suture debridement, with I&D prepatellar bursa Status post cardiac surgery as a child, repair "hole in heart" Family History Other No known health problems Social History Smoking Status: Never smoker Second Hand Exposure: No; Do You Dip or Chew Tobacco: No; Tobacco Cessation Education Requested by Patient: No Hx Alcohol Use: Yes Hx Substance Use: No Preferred Language: Yakut Communication Ability: Effective Sat Tutor Required: No Beliefs That Will Affect Care: None Current Living Situation: Spouse Other Information That Helps Us Care for You: No Feels Safe at Home: Yes Safety Concerns: Feels Safe At This Time Assistive Devices: Walker Review of System A 10 point ROS obtained. Pertinent positives as per HPI. Physical Exam Physical Exam: Gen- NAD HEENT- anicteric sclera, EOMI, hearing intact Neck- Supple Abd- soft, NT, ND Lung- Nonlabored breathing. On RA Extremities- Right knee in immobilizer. Right knee incision with brianda. No erythema. + post op edema. No drainage. Mild TTP Neuro- AAO times 3 Psych- cooperative, normal mood Results & Data Vital Signs (Past 12 Hours) Vital Signs Temp Pulse Resp BP Pulse Ox O2 Del Method 06/08/25 07:00 36.7 C 60 16 154/80 H 95 Room Air 06/07/25 22:10 36.6 C 60 16 145/73 H 95 Room Air Laboratory Results Laboratory Results - last 48 hr 06/07/25 06/08/25 06:49 07:42 WBC 12.06 H 9.25 RBC 4.61 L 4.57 L Hgb 12.9 L 13.0 L Hct 39.1 L 38.8 L MCV 84.8 84.9 MCH 28.0 28.4 MCHC 33.0 33.5 RDW Std Deviation 42.2 42.2 RDW Coeff of Lizabeth 13.6 13.6 Plt Count 330 287 MPV 9.6 9.5 Sodium 139 139 Potassium 4.1 3.9 Chloride 105 104 Carbon Dioxide 27 29 Anion Gap 7 6 BUN 19 15 Creatinine 1.00 0.97 Est Cr Clr Drug Dosing 83.0 85.6 eGFR 84.57 87.72 BUN/Creatinine Ratio 19.0 15.5 Glucose 120 H 118 H Calcium 8.9 8.8 Microbiology 06/05/25 14:04 Knee,Right Gram Stain - Final 06/05/25 14:04 Knee,Right Aerobic and Anaerobic Culture - Preliminary Pseudomonas aeruginosa 06/05/25 14:00 Bone Gram Stain - Final 06/05/25 14:00 Bone Aerobic and Anaerobic Culture - Preliminary Pseudomonas aeruginosa 06/05/25 13:31 Knee Gram Stain - Final 06/05/25 13:31 Knee Aerobic and Anaerobic Culture - Preliminary Pseudomonas aeruginosa 06/05/25 13:16 Knee Gram Stain - Final 06/05/25 13:16 Knee Aerobic and Anaerobic Culture - Preliminary Pseudomonas aeruginosa 06/05/25 13:15 Leg,Right Gram Stain - Final 06/05/25 13:15 Leg,Right Aerobic and Anaerobic Culture - Preliminary No growth to date. 06/05/25 13:14 Knee,Right Gram Stain - Final 06/05/25 13:14 Knee,Right Aerobic and Anaerobic Culture - Preliminary Pseudomonas aeruginosa Medications Administered Home Medications Medication Instructions Recorded Confirmed Last Taken amlodipine 5 mg tablet 5 mg PO QPM 06/07/22 06/05/25 06/04/25 22:00 losartan 25 mg tablet 25 mg PO QPM 06/07/22 06/05/25 06/04/25 22:00 Active Medications Generic Name Dose Route Start Last Admin Trade Name Freq PRN Reason Stop Dose Admin Amlodipine Besylate 5 mg 06/05/25 21:00 06/07/25 20:45 Amlodipine Besylate 5 Mg Tab PO 07/05/25 20:59 5 mg QPM YU Administration Apixaban 2.5 mg 06/06/25 09:00 06/08/25 07:08 Apixaban 2.5 Mg Tab PO 07/06/25 08:59 2.5 mg BID YU Administration Docusate Sodium 100 mg 06/05/25 21:00 06/08/25 07:12 Docusate Sodium 100 Mg Cap PO 07/05/25 20:59 Not Given BID YU Piperacillin Sod/Tazobactam Sod 4.5 gm in 100 mls @ 25 mls/hr 06/05/25 23:30 06/08/25 07:07 Zosyn IV 07/17/25 23:29 25 mls/hr Q8H YU Administration Protocol Ketorolac Tromethamine 30 mg 06/05/25 17:14 06/06/25 05:35 Ketorolac 30 Mg/Ml Vial IV 06/10/25 17:13 30 mg Q6H PRN Administration Pain Losartan Potassium 25 mg 06/05/25 21:00 06/07/25 20:44 Losartan Potassium 25 Mg Tab PO 07/05/25 20:59 25 mg QPM YU Administration
--- NOTE | 2025-06-08 11:15 | Orthopedic Progress Note ---
Date of Service June 08, 2025 Assessment & Plan (1) Postoperative wound infection: Plan: POD #3 s/p Right Knee Incision and drainage and excisional debridement Suture Material, multiple suture abscesses, quadriceps tendon tissue, debridement of skin and sinus tract, Debridement of bone patella Tunnel knee immobilizer for ambulation, can loosen in bed for comfort; PT: can do quad set, SLR, gentle heel slides, no ROM >90. DVT with Eliquis ID Consulted, intraop cultures showing Pseudomonas aeruginosa. Appreciate ID input. Zosyn was discontinued today. Start cefepime 2 g every 8 hours. Total time of IV cefepime will be at least 4 weeks. If pathology from the patella comes back with osteomyelitis, the IV timeframe will be 6 weeks. An order for a PICC line was placed today. Consent was obtained from the patient and the consent was placed in the chart. Discharge planningwe discussed that a discharge home will be able to happen after the PICC line is placed, after he has tolerated the cefepime, and the medications are set up to be sent to his home. He is aware that home nursing may be needed to start the IV medication. He also may be taught how to do the IVs on his own. Admission and Anticipated Discharge Date Admission Date: June 05, 2025 Subjective Patient states he is doing well postop day #3 from right knee I&D. He has been ambulating with the knee immobilizer. Pain is controlled in the knee. No new complaints today. Physical Exam Constitutional: WD/WN, vitals as above no acute distress (Lying in bed comfortably) Musculoskeletal: Knee: + surgical incision (Right knee dressing is C/D/I.); no skin erythema, no ecchymosis and no surgical drain present (Hemovac was removed yesterday) Skin: no rashes, warm and dry Trauma: no evidence of skin trauma Neurologic: normal touch/pain/proprioception Psychiatric: A+Ox3, euthymic affect Speech: normal rate/rhythm/volume of speech Results & Data Vital Signs (Past 12 Hours) Vital Signs Temp Pulse Resp BP Pulse Ox O2 Del Method 06/08/25 07:00 36.7 C 60 16 154/80 H 95 Room Air Laboratory Results Spec: [id number] Collected: 06/05/25 Received: 06/05/25-[address]: Claude Fritz M.D. Source: Knee OV Order: Ordered: Aer/Dixie Cult/Sm Comments: Comment 4) Right Quadriceps tendon suture, vastus lateralu Procedure Result Verified Site Gram Stain Final 06/06/25 Gram Stain Result Rare Epithelial Cells Many Polys Rare Mononucleated Cells No Organisms Seen Aero/Dixie Cult Preliminary 06/08/25 Organism 1 Pseudomonas aeruginosa Quantity Few Sens Sensitivities to Follow P aerugino RX M.I.C. --- --------- Amikacin S <=16 Aztreonam S <=4 Cefepime S 4 Ceftolozan/tazo S <=2 Ceftazidime S <=1 Ceftaz/Avibact S <=4 Ciprofloxacin S <=0.25 Levofloxacin S <=0.5 Meropenem R >8 Tobramycin S <=2 Pip/Tazo S 16 S = SENSITIVE I = INTERMEDIATE R = RESISTANT
[2025-06-08] MEDS: CEFEPIME 2000MG 2,000 MG/20 ML SYR IV SCH (11:44)
--- NOTE | 2025-06-08 13:23 | Communication Note ---
Date of Service: June 08, 2025 Attempted to round on patient 3 times, busy each time. Labs reviewed, no new recommendations from medicine team. Agree with ID. Medically stable for dis charge. Hospital medicine will sign off.
[2025-06-08 14:35] VITALS: RESP 18
[2025-06-09 06:21] LABS: Hematocrit (blood only) 37.8 % (42.0-52.0); Hemoglobin 13.1 g/dL (14.0-18.0); Mean Corpuscular Hemoglobin 29.0 pg (25.0-34.0); Mean Corpuscular Volume 83.8 fL (80.0-100.0); Platelet Count 300 K/uL (130-400); RDW Standard Deviation 41.0 fL (36.4-46.3); Red Blood Count 4.51 M/uL (4.70-6.10); White Blood Count 10.81 K/ul (4.8-10.8)
[2025-06-09 07:07] LABS: Anion Gap 7.0 (3-11); Blood Urea Nitrogen 17.0 mg/dl (6-23); Calcium 8.9 mg/dl (8.6-10.3); Carbon Dioxide 26.0 mmol/L (21-32); Chloride 105.0 mmol/L (98-107); Creatinine Clr Calc Pharmacy 107.8 ml/min; Glucose 127.0 mg/dl (70-99(Fasting)); Potassium 4.1 mmol/L (3.5-5.1); Sodium 138.0 mmol/L (136-145)
[2025-06-09 07:21] VITALS: PULSE 57; TEMP 98.2; O2SAT 94
--- NOTE | 2025-06-09 08:37 | Orthopedic Progress Note ---
Date of Service June 09, 2025 Assessment & Plan (1) Postoperative wound infection: Plan: POD #4 s/p Right Knee Incision and drainage and excisional debridement Suture Material, multiple suture abscesses, quadriceps tendon tissue, debridement of skin and sinus tract, Debridement of bone patella Tunnel knee immobilizer for ambulation, can loosen in bed for comfort; PT: can do quad set, SLR, gentle heel slides, no ROM >90. DVT with Elijayshreeis ID Consulted, intraop cultures showing Pseudomonas aeruginosa. Appreciate ID input. Zosyn was discontinued today. Start cefepime 2 g every 8 hours. Total time of IV cefepime will be at least 4 weeks. If pathology from the patella comes back with osteomyelitis, the IV timeframe will be 6 weeks. An order for a PICC line was placed today. Consent was obtained from the patient and the consent was placed in the chart. Discharge planningPICC line was placed yesterday. If home nursing and antibiotic treatment is set up for today, the patient may discharge home today. The patient will follow-up in our office approximately 2 weeks after surgery. Admission and Anticipated Discharge Date Admission Date: June 05, 2025 Subjective Patient states he is doing well postop day #4 from right knee I&D. He has been ambulating with the knee immobilizer. Pain is controlled in the knee. No new complaints today. Physical Exam Constitutional: WD/WN, vitals as above no acute distress (Lying in bed comfortably) Musculoskeletal: Knee: + surgical incision (Right knee incision well- approximated, no drainage. No erythema.); no skin erythema, no ecchymosis and no surgical drain present (Hemovac was removed) Skin: no rashes, warm and dry Trauma: no evidence of skin trauma Neurologic: normal touch/pain/proprioception Psychiatric: A+Ox3, euthymic affect Speech: normal rate/rhythm/volume of sp eech Results & Data Vital Signs (Past 12 Hours) Vital Signs Temp Pulse Resp BP BP Pulse Ox O2 Del Method 06/09/25 07:20 36.8 C 57 L 18 146/78 H 94 Room Air 06/08/25 22:24 36.6 C 51 L 18 147/80 H 96 Room Air
--- NOTE | 2025-06-09 12:07 | Infectious Disease Progress Nt ---
Date of Service June 09, 2025 Assessment & Plan (1) History of repair of ruptured quadriceps tendon: (2) Abscess of knee, right: Plan This is a 64-year-old man with a past medical history of hypertension, right quadricep tendon rupture status post repair in 05/2022, complicated by nonhealing wound with Pseudomonas aeruginosa infection and adverse reaction to FiberWire suture material and inflammation in prepatellar bursa. He underwent right knee open excision of suture material and excision of "proud flesh" with debridement of subcutaneous tissue, skin, prepatellar bursa with irrigation and debridement and wound closure on 06/07/2022. Operative culture grew Pseudomonas aeruginosa (pansensitive). He reports he was treated with ciprofloxacin. Postprocedure he did well with physical therapy. He eventually had closure of the wound and was able to walk and bike with no issues. He then developed increased swelling of the knee and abscess at the superior aspect of his incision of his quadricep tendon repair. He presents to the [facility] ED on 06/04/2025 for incision and drainage, excision of suture material with multiple suture abscesses. Prior to admission, outpatient ID (Dr. Palacios) was consulted by orthopedics and recommended the patient be started on Zosyn post OR. He did not received antibiotics prior to OR. Per my discussion with the patient, he confirms that in 05/2022, he had delay in right knee incision closure post tendon repair for several weeks. A wound swab of drainage grew Pseudomonas aeruginosa for which he was treated with ciprofloxacin. He went to the OR on 06/07/22 as per above, was treated with additional cipro and the wound eventually healed. He did well for for about 3 years About 2 months agom, he noticed intermittent knee swelling that resolved. 1 month ago knee swelling recurred and persisted. He then noted discoloration at the prior incision site and eventual dehiscence and wound drainage. Per report he underwent outpatient MRI (I do not have access to the result). On 06/05/2025, he underwent right knee incision and drainage and excisional debridement of suture material, multiple suture abscesses, quadricep tendon tissue, debridement of skin and sinus tract as well as right knee debridement of bone patella tunnel. All intraoperative cultures grew Pseudomonas aeruginosa (resistant to meropenem) On admission and throughout admission he has been afebrile and hemodynamically stable. WBC the day prior to admission on 06/03 was 9.46. Post OR on 06/06 WBC 16.91. Leukocytosis has resolved. He is currently on Zosyn. He denies fever, chills, sweats, nausea, vomiting, prior trauma to the knee. Pathology is pending. ID consulted for Right anvik knee infection. Microbiology 06/05/2025 right knee suture abscess culture: Rare Pseudomonas aeruginosa(resistant to meropenem) 06/05/2025 right knee sinus tract culture #1: Rare Pseudomonas aeruginosa(resistant to meropenem) 06/05/2025 right knee sinus tract culture # 2: NGTD 06/05/2025 right quadricep tendon suture, vastus lateralis culture: Few Pseudomonas aeruginosa (resistant to meropenem) 06/05/2025 right knee bone tunnel culture: Rare Pseudomonas aeruginosa(resistant to meropenem) 06/05/2025 right patellar bone culture: Rare Pseudomonas aeruginosa(resistant to meropenem) Prior microbiology 06/07/2022 right knee abscess culture: Few Pseudomonas aeruginosa (pansensitive 05/26/2022 right knee abscess wound culture: Few Pseudomonas aeruginosa (pansensitive) Antibiotics Zosyn 06/05c108/08 Cefepime 06/08-present Pathology Pathology 06/05/2025. Skin and soft tissue, right knee, sinus tract, excision: Necrotic, inflamed, granulation tissue consistent with a sinus tract. # Recurrent Right knee Pseudomonas Aeruginosa infection. # Right knee suture abscesses, foreign body reaction, bone tunnel dilatation/sinus tract and osteomyelitis #Status post right knee I&D ,excisional debridement of suture material, multiple suture abscesses, quadricep tendon tissue, debridement of skin and sinus tract, and bone patella tunnel, 06/05/2025, cx Pseudomonas aeruginosa (resistant to meropenem) # History of repair of quadricep tendon repair 06/07/2022, cx Pseudomonas aeruginosa (pansensitive) Discussion: He presents with recurrent right anvik knee infection with abscess, sinus tract and osteomyelitis. He is sp OR. Bone cultures are positive for meropenem resistant pseudomonas aeruginosa. Positive bone culture confirms osteomyelitis. Pathology of excised Skin and soft tissue show s necrotic, inflamed, granulation tissue consistent with a sinus tract. No bone biopsy available. He has no knee hardware. He remains afebrile and hemodynamically stable. Would stay away from fluoroquinolones (Cipro, levofloxacin as the patient has a history of tendon rupture). Since organism is a Carbapenem R Pseudomonas, continue contact isolation. Recommendations: - Continue Cefepime 2 g Iv q8h ( will avoid Cipro as given h/o tendon rupture) -Can Place picc line -Follow OR cx to finalization -Weekly CBC with diff, cmp on IV abx. Will need ID follow up on abx.SINCE BONE CX is positive for Pseudomonas, he will need 6 weeks of abx from OR. EOT is 07/17/2025 -Contact isolation for Carbapenem R Pseudomonas Will d/w team if pt with follow with [facility] or Dr Palacios ( local ID). Awaiting for response from jackie FARRIS See OPAT instructions. Outpatient Discharge summary, Discharging Physician please order the following on discharge: Diagnosis: Recurrent Right knee Pseudomonas Aeruginosa infection and Right knee suture abscesses, foreign body reaction, bone tunnel dilatation/sinus tract and osteomyelitis Organism: Pseudomonas Aeruginosa Antibiotic: (dose and frequency) Start of therapy: 06/05/25 End of therapy: 07/17/2025 Picc/ Midline/ US-guided peripheral IV: Care per protocol, remove at end of therapy Repeat imaging recommendations (type of image, contrast, time frame): None Oral suppression after cessation of IV antibiotics (drug, dose, duration): No Labs should be faxed to ID office attention [facility] [phone] if patient will follow up with [facility]. Labs needed and frequency Weekly cbc with diff, CMP Please follow up with [facility] outpatient clinic Clinic Address [address] [place] [address] Office (P) [phone] Appointment-time frame 4 -5 weeks ID will sign off. WIll add addendum if team lets me know which ID group pt will follow with outpt. Sidney Fernandes MD, MPH Infectious Disease [facility] Call [phone] with questions Admission and Anticipated Discharge Date Admission Date: June 05, 2025 Subjective This patient recommendation is based on a telemedicine consult request which was completed asynchronously through chart review and information provided by the primary physician. The patient was not seen or examined today. The evaluation is consultative in nature and all patient care and treatment decisions can either be accepted or rejected by the patient's primary hospital-based treating physician using their own independent medical judgment for their patient. Time Spent Reviewing Chart: 21 - 30 minutes Path of sinus tract completed . No bone path was sent Afebrile. Results & Data Vital Signs (Past 12 Hours) Vital Signs Temp Pulse Resp BP Pulse Ox O2 Del Method 06/09/25 07:20 36.8 C 57 L 18 146/78 H 94 Room Air Laboratory Results Laboratory Results - last 48 hr 06/08/25 06/09/25 07:42 05:56 WBC 9.25 10.81 H RBC 4.57 L 4.51 L Hgb 13.0 L 13.1 L Hct 38.8 L 37.8 L MCV 84.9 83.8 MCH 28.4 29.0 MCHC 33.5 34.7 RDW Std Deviation 42.2 41.0 RDW Coeff of Lizabeth 13.6 13.3 Plt Count 287 300 MPV 9.5 9.5 Sodium 139 138 Potassium 3.9 4.1 Chloride 104 105 Carbon Dioxide 29 26 Anion Gap 6 7 BUN 15 17 Creatinine 0.97 0.77 Est Cr Clr Drug Dosing 85.6 107.8 eGFR 87.72 100.60 BUN/Creatinine Ratio 15.5 22.1 H Glucose 118 H 127 H Calcium 8.8 8.9 Microbiology 06/05/25 14:04 Knee,Right Gram Stain - Final 06/05/25 14:04 Knee,Right Aerobic and Anaerobic Culture - Preliminary Pseudomonas aeruginosa 06/05/25 14:00 Bone Gram Stain - Final 06/05/25 14:00 Bone Aerobic and Anaerobic Culture - Preliminary Pseudomonas aeruginosa 06/05/25 13:31 Knee Gram Stain - Final 06/05/25 13:31 Knee Aerobic and Anaerobic Culture - Preliminary Pseudomonas aeruginosa 06/05/25 13:14 Knee,Right Gram Stain - Final 06/05/25 13:14 Knee,Right Aerobic and Anaerobic Culture - Preliminary Pseudomonas aeruginosa 06/05/25 13:16 Knee Gram Stain - Final 06/05/25 13:16 Knee Aerobic and Anaerobic Culture - Preliminary Pseudomonas aeruginosa 06/05/25 13:15 Leg,Right Gram Stain - Final 06/05/25 13:15 Leg,Right Aerobic and Anaerobic Culture - Preliminary No growth to date. Medications Administered Home Medications Medication Instructions Recorded Confirmed Last Taken amlodipine 5 mg tablet 5 mg PO QPM 06/07/22 06/05/25 06/04/25 22:00 losartan 25 mg tablet 25 mg PO QPM 06/07/22 06/05/25 06/04/25 22:00 apixaban 2.5 mg tablet (Eliquis) 2.5 mg PO BID #30 tabs 06/09/25 Unknown cefepime 2 gram solution for 2 g IV Q8H 6 weeks 06/09/25 Unknown injection oxycodone-acetaminophen 5 mg-325 1 tab PO Q4H PRN pain #20 tabs 06/09/25 Unknown mg tablet (Percocet)
[2025-06-09 12:39] VITALS: BP 147/80
--- NOTE | 2025-06-10 10:19 | Coding Query ---
DEBRIDEMENT DOCUMENTATION To promote full compliance with coding requirements relating to patient care, physician participation is requested in all cases of shearer operator uncertainty. Please assist us with the question(s) below: Please place an X in the parenthesis (x). If other, please document the finding: Type of Debridement: ( x) Excisional Debridement- Cutting away necrotic, devitalized tissue or slough to the level of viable tissue using a sharp instrument (i.e. scalpel, scissors, etc.) ( ) Non Excisional Debridement- The removal of necrotic, devitalized tissue or slough by means of scraping, mechanical brushing, flushing, or washing (i.e. irrigation,whirlpool);minor removal of loose fragments. ( ) Other (please specify): Depth of Debridement: ( ) Skin ( ) Skin and Subcutaneous Tissue ( ) Skin, Subcutaneous Tissue and Muscle (x ) Skin, Subcutaneous Tissue, Muscle and Bone ( ) Other (please specify): Thank you Yoli CARRINGTON
--- NOTE | 2025-06-10 11:45 | Discharge Summary ---
Date of Service June 10, 2025 Admission HPI Per Admitting Provider 64-year-old male who had a quadriceps tendon repair of a right knee ruptured quad tendon in 2021 and had complications postop with adverse reaction to FiberWire suture material which had to be removed at the inferior pole of the patella but cultures demonstrate he had Pseudomonas infection. Patient had IntraOp clindamycin and gentamicin and was treated afterward with ciprofloxacin and had recovery and eventually with physical therapy did satisfactorily with function which patient was satisfied with until 3 years later now developed soft tissue cystic mass/abscess superior aspect of his incision of his quad tendon repair site. Patient denies headaches, sweats, fevers, chills, double vision, blurred vision, cough, sore throat, chest pain, sob, wheezing, n/v/d/c, numbness, tingling, fatigue, urinary symptoms, mood disorders. ROS positive for snoring/sleep apnea, anemia, acid reflux. Principal Diagnosis Right knee abscess Right knee osteomyelitis patella Discharge Exam Constitutional WD/WN, vitals as above no acute distress (Lying in bed comfortably) Musculoskeletal Knee: + surgical incision (Right knee incision well-approximated, no drainage. No erythema.); no skin erythema, no ecchymosis and no surgical drain present (Hemovac was removed) Skin no rashes, warm and dry Trauma: no evidence of skin trauma Neurologic normal touch/pain/proprioception Psychiatric A+Ox3, euthymic affect Speech: normal rate/rhythm/volume of speech Discharge Data Allergies Allergy/AdvReac Type Severity Reaction Status Date / Time cephalexin Allergy rash, Verified 06/05/25 10:51 itching Consultations 06/04/25 09:00 Consult Hospitalist Routine 06/05/25 17:14 Consult Infectious Diseases Routine Procedures Performed Operation Date: 06/05/25 11:50 Actual Procedures p Right Knee Incisional Debridement Suture Material, Intraligamentous Ganglion Cyst, Right Knee Debridement Patella Tunnel(Right) - Claude Fritz MD Hospital Course (1) Postoperative wound infection: POD #4 s/p Right Knee Incision and drainage and excisional debridement Suture Material, multiple suture abscesses, quadriceps tendon tissue, debridement of skin and sinus tract, Debridement of bone patella Tunnel knee immobilizer for ambulation, can loosen in bed for comfort; PT: can do quad set, SLR, gentle heel slides, no ROM >90. DVT with Eliquis ID Consulted, intraop cultures showing Pseudomonas aeruginosa. Appreciate ID input. Zosyn was discontinued today. Start cefepime 2 g every 8 hours. Total time of IV cefepime will be at least 4 weeks. If pathology from the patella comes back with osteomyelitis, the IV timeframe will be 6 weeks. An order for a PICC line was placed today. Consent was obtained from the patient and the consent was placed in the chart. Discharge planningPICC line was placed yesterday. If home nursing and antibiotic treatment is set up for today, the patient may discharge home today. The patient will follow-up in our office approximately 2 weeks after surgery. Total Time Total Time Spent Total Time Spent (In Minutes): 60 Discharge Plan Discharge Items Patient Disposition: Home - Home Health Services Reason For Visit: Right Knee Foreign Body Reaction, Ganglion Cyst Discharge Diagnosis: Osteomyelitis right patella Activity: Per Instructions section Non-emergency contact: Primary Care Provider and Surgeon Call non-emergency contact if: your pain is not controlled, your pain is worsening and your temperature is above 101 Follow-up/Referrals: Kaitlin Riggs D.O. [Primary Care Provider] - (THE OFFICE IS CLOSED; PLEASE CALL AND SCHEDULE A HOSPITAL FOLLOW UP VISIT IN 7- 10 DAYS ) Diet: Regular Addtl Attending Provider Instructions: ACTIVITY RECOMMENDATIONS: SELF CARE INSTRUCTIONS A. You may need to continue a physical therapy program after discharge from the hospital. There are several options available to you. Your doctor will assist you in selecting the best one for you. 1. An out-patient facility 2 to 3 times a week for therapy or home therapy. 2. Continue working on all exercises taught to you in the hospital. Your goals should be to increase bending of your knee to 90 degrees and beyond and to fully straighten your knee. No formal physical therapy until at least 6 weeks after surgery. He may perform heel slides for range of motion of the right knee. No flexion past 90 degrees. You may do straight leg raises right lower extremity. B. You may progress at your own pace from walking with a walker or crutches to a cane; then to no assistive devices. C. Make walking a part of your daily routine. Be up as much as comfortable with rest periods throughout the day. Rest with leg elevation is very important. Use the ice wrap frequently for the first 3-4 weeks. D. There are no restrictions on activities. You may ride in a car, shop, participate in resin coater and all social activities. E. Wear the long elastic stockings (KRISTINE hose) 20 hours a day for 2 weeks after surgery. They can be removed several times a day for laundering and for a bath. F. You may shower, no tub baths until cleared by your doctor. G. You may return to a normal diet. SPECIAL CARE INSTRUCTIONS: VERY IMPORTANT TO READ AND REVIEW A. There are a few signs you need to watch for after you are home. Call [facility] if you notice any of the followin. Increased severe knee pain. Some pain is expected especially when you exercise. 2. Increased swelling in your leg or knee; pain or swelling of the calf musc le in either lower leg. 3. Any fluid drainage from the incision. 4. Shortness of breath or chest pain. B. Please call [facility] at if you have any concerns or questions about your operation or recovery. The doctor or his nurse will return your call promptly. C. You must take antibiotics before dental work, bladder, bowel or other surgery. Your doctor will provide you with a permanent care to carry describing this precaution. IMPORTANT: * REMEMBER TO ELIQUIS 2.5 MG EVERY 12 HOURS THIS IS YOUR BLOOD THINNER. * HIGH RISK PATIENTS MAY BE PRESCRIBED A STRONGER BLOOD THINNER. THIS WILL BE PROVIDED AT DISCHARGE. * CALL IF INCREASED PAIN, REDNESS, DRAINAGE OR FEVER GREATER THAT 101. * WEAR KRISTINE HOSE 20 HOURS PER DAY FOR 2 WEEKS. * YOU MAY HAVE A LARGE BAND-AID LIKE DRESSING (SILVERON). THIS WILL REMAIN ON YOUR INCISION FOR 7 DAYS, THEN CAN BE REMOVED. IF INCISION IS LEAKING THROUGH DRESSING, CALL THE OFFICE . FOLLOW UP VISIT: If appointment is not already scheduled: Please call [facility] to make a follow-up appointment for 2 weeks after your surgery at . Pending Studies at Discharge: No Stand-Alone Forms: [employer], Smoking Cessation Medications and DC Order Prescriptions: New oxycodone-acetaminophen [Percocet] 5-325 mg Tablet 1 tab PO Q4H PRN (Reason: pain) Qty: 20 0RF cefepime 2 gram recon soln 2 g IV Q8H 42 Days Eliquis 2.5 mg Tablet 2.5 mg PO BID Qty: 30 0RF Continued amlodipine 5 mg Tablet 5 mg PO QPM losartan 25 mg Tablet 25 mg PO QPM Discharge Orders: Discharge Order (Routine); Ordered 06/09/25 Ordered By: Elier Rocha Admission Data Admit Date/Time: 06/05/25 15:50 Attending Provider: Claude Fritz Admit Provider: Claude Fritz Primary Care Provider: Kaitlin Riggs Other Providers: Rogers Smith; Sidney Fernandes Other Interventions: Discharge Summary Assessment (RN) Last Done: 06/09/25 12:35
--- NOTE | 2025-06-10 17:34 | Anesthesiology Progress Note ---
Date of Service June 10, 2025 Anesthesia Post Procedure Pain Intensity Right Knee: Pain Intensity: 2 Transfer of Care Handoff Completed per policy Notes Mental Status: alert / awake / arousable Patient Amnestic to Procedure: Yes Nausea / Vomiting: adequately controlled Pain: adequately controlled Airway Patency, RR, SpO2: stable & adequate BP & HR: stable & adequate Hydration State: stable & adequate Anesthetic Complications: no major complications apparent
--- NOTE | 2025-06-11 10:33 | Billing Data ---
Date of Service June 05, 2025 Coding Level of Care Code 93022 IN/OBS CONSULT LVL 4,60M
--- NOTE | 2025-06-11 10:33 | Billing Data ---
Date of Service June 06, 2025 Coding Level of Care Code 18516 SUB INP/OBS CARE MIN
--- NOTE | 2025-06-11 10:34 | Billing Data ---
Date of Service June 07, 2025 Coding Level of Care Code 46833 SUB INP/OBS CARE
== END 2025-06-09 14:15 | disposition home health service (06) | DRG 857 ==
LOC: ASU 10:32 → 3W 15:50